=== PATIENT | female | born 1980 | race African-American/Black ===

== ENCOUNTER 2016-12-28 19:17 | Emergency (ER) | payer MEDICAID ==
[~2016-12-28] VITALS: Ht 154.9 cm; Wt 94.3 kg
[2016-12-28 19:36] VITALS: BP 143/90
--- NOTE | 2016-12-28 22:57 | NUR ---
PT TAKEN TO BED 7
--- NOTE | 2016-12-28 22:58 | NUR ---
Dr. Bajwa evaluating patient at bedside.
[2016-12-28] MEDS ORDERED: KETOROLAC 60 MG/2 ML VIAL IM ONE (23:05)
--- NOTE | 2016-12-28 23:05 | NUR ---
PATIENT PRESENTS TO ED WITH TOOTHACHE, SINCE THIS MORNING . SKIN IS PINK/WARM/DRY; AAOX4 WITH EVEN AND STEADY GAIT; PATIENT STATES PAIN OF 10/10 AT THIS TIME; VSS; PATIENT POSITIONED FOR COMFORT; HOB ELEVATED; BEDRAILS UP X2; BED DOWN. ER MD MADE AWARE OF PT STATUS.
[2016-12-28 23:45] VITALS: BP 122/74
--- NOTE | 2016-12-28 23:50 | NUR ---
Patient discharged with v/s stable. Written and verbal after care instructions given and explained. Patient alert, oriented and verbalized understanding of instructions. Ambulatory with steady gait. All questions addressed prior to discharge. ID band removed. Patient advised to follow up with PMD. Rx of NORCO 5MG, MOTRIN 800MG given. Patient educated on indication of medication including possible reaction and side effects. Opportunity to ask questions provided and answered.
== END 2016-12-28 23:50 | disposition home or self-care (01) ==
LOC: MED 19:17
DX: K08.89 Other specified disorders of teeth and supporting structures (principal); Z88.0 Allergy status to penicillin; Z88.6 Allergy status to analgesic agent; Z88.5 Allergy status to narcotic agent; J45.909 Unspecified asthma, uncomplicated
CPT/HCPCS: 96372; 99283; J1885

== ENCOUNTER 2018-01-07 12:50 | Emergency (ER) | payer MEDICAID ==
[~2018-01-07] VITALS: Ht 154.9 cm; Wt 101.7 kg
[2018-01-07 12:54] VITALS: BP 139/103
--- NOTE | 2018-01-07 12:56 | NUR ---
PT AMBULATES TO BED 11
--- NOTE | 2018-01-07 13:10 | NUR ---
PATIENT PRESENTS TO ED WITH SEVERE HEADACHE THAT RADIATES TO NECK AND BACK. PT STATES LIGHT HURTS HER HEAD AND PAIN IS LIKE A STABBING PAIN IN THE FRONT OF HER HEAD THEN THE RIGHT SIDE. REPORTS NAUSEA; SKIN IS PINK/WARM/DRY; AAOX4 WITH EVEN AND STEADY GAIT; LUNGS CLEAR BL; HR EVEN AND REGULAR; PT DENIES ANY FEVER, CP, SOB, OR COUGH AT THIS TIME; PATIENT STATES PAIN OF 10/10 AT THIS TIME; VSS; PATIENT POSITIONED FOR COMFORT; HOB ELEVATED; BEDRAILS UP X1; BED DOWN. ER MD MADE AWARE OF PT STATUS.
[2018-01-07] MEDS ORDERED: KETOROLAC 30 MG/ML VIAL IVP ONE (13:15)
[2018-01-07] MEDS ORDERED: METOCLOPRAMIDE 10 MG/2 ML INJ VIAL IVP ONE (13:15)
[2018-01-07] MEDS ORDERED: NACL 0.9% 1,000 ML IV ONE (13:15)
[2018-01-07 13:50] LABS: APPEARANCE,URINE CLEAR (CLEAR); BILIRUBIN,URINE NEGATIVE (NEGATIVE); BLOOD, URINE NEGATIVE (NEGATIVE); COLOR,URINE YELLOW (YELLOW); LEUKOCYTE ESTERASE ,URINE NEGATIVE (NEGATIVE); NITRITE, URINE NEGATIVE (NEGATIVE); UGLUCOSE NEGATIVE (NEGATIVE)
[2018-01-07 14:35] VITALS: BP 139/103
--- NOTE | 2018-01-07 14:35 | NUR ---
Patient discharged with v/s stable. Written and verbal after care instructions given and explained. Patient alert, oriented and verbalized understanding of instructions. Ambulatory with steady gait. All questions addressed prior to discharge. ID band removed. Patient advised to follow up with PMD. Rx of DICLOFENAC AND CYCLOBENZAPRINE given. Patient educated on indication of medication including possible reaction and side effects. Opportunity to ask questions provided and answered.
== END 2018-01-07 14:35 | disposition home or self-care (01) ==
LOC: MED 12:50
DX: M54.81 Occipital neuralgia (principal); Z88.0 Allergy status to penicillin; Z88.5 Allergy status to narcotic agent; Z88.6 Allergy status to analgesic agent; J45.909 Unspecified asthma, uncomplicated
CPT/HCPCS: 70450; 81003; 96361; 96374; 96375; 99285; J1885; J2765

== ENCOUNTER 2018-02-17 19:55 | Emergency (ER) | payer MEDICAID ==
[~2018-02-17] VITALS: Ht 154.9 cm; Wt 99.1 kg
[2018-02-17 20:00] VITALS: BP 126/100
--- NOTE | 2018-02-17 20:13 | NUR ---
PT TAKEN TO BED 3
--- NOTE | 2018-02-17 22:00 | NUR ---
PT BIB FAMILY C/OREPORTS EXCESSIVE VAGINAL BLEEDING. REPORTS 10/10 PAIN AND CLOTS X 9 DAYS. U/HCG-NEG, PT DENIES N/V/D; SKIN IS INTACT, PINK/WARM/DRY; AAOX4, PERRL, WITH EVEN AND STEADY GAIT; LUNGS CLEAR BL, BREATHING UNLABORED; HR EVEN AND REGULAR, BL PERIPHERAL PULSES PRESENT; BS ACTIVE X4, NO TENDERNESS TO PALPATION. PT DENIES ANY FEVER, CP, SOB, OR COUGH AT THIS TIME; PT STATES 10/10 PAIN AT THIS TIME; VSS; PATIENT POSITIONED FOR COMFORT; HOB ELEVATED; BEDRAILS UP X2; BED DOWN.
--- NOTE | 2018-02-17 22:20 | NUR ---
Pt report given to LOREN[facility]. Transfer of care at this time.
[2018-02-17 22:57] LABS: BASOPHILS # (AUTO) 0.1 K/uL (0.00-0.22); BASOPHILS % (AUTO) 0.8 % (0.0-2.0); EOSINOPHILS # (AUTO) 0.1 K/uL (0-0.4); EOSINOPHILS % (AUTO) 1.9 % (0.0-4.0); HEMATOCRIT 37.4 % (36-48); HEMOGLOBIN 12.7 g/dL (12.0-16.0); LYMPHOCYTES # (AUTO) 3.5 K/uL (2.5-16.5); LYMPHOCYTES % (AUTO) 50.7 % (20.5-51.1); MEAN CORPUSCULAR HEMOGLOBIN 30 pg (27-31); MEAN CORPUSCULAR HGB CONC 34 g/dL (33-37); MEAN CORPUSCULAR VOLUME 89.6 fL (80-94); MONOCYTES # (AUTO) 0.6 K/uL (0.8-1.0); MONOCYTES % (AUTO) 8.5 % (1.7-9.3); NEUTROPHILS # (AUTO) 2.6 K/uL (1.8-7.7); NEUTROPHILS % (AUTO) 38.1 % (42.2-75.2); PLATELET COUNT (AUTO) 267 K/uL (140-450); RED BLOOD CELL COUNT(AUTO) 4.18 MIL/uL (4.20-5.40); RED CELL DISTRIBUTION WIDTH 13.1 % (11.6-13.7); WHITE BLOOD COUNT (AUTO) 6.9 K/uL (4.8-10.8)
--- NOTE | 2018-02-17 23:00 | NUR ---
PT ON STRETCHER IN NO ACUTE DISTRESS. NO IDENTIFIED REQUESTS AT THIS TIME.
[2018-02-17 23:04] LABS: BILIRUBIN,URINE NEGATIVE (NEGATIVE); BLOOD, URINE 3+ (NEGATIVE); COLOR,URINE YELLOW (YELLOW); LEUKOCYTE ESTERASE ,URINE NEGATIVE (NEGATIVE); NITRITE, URINE NEGATIVE (NEGATIVE); UGLUCOSE NEGATIVE (NEGATIVE)
[2018-02-17 23:15] LABS: ANION GAP 12.1 (8-16); CARBON DIOXIDE 25.7 mmol/L (21-32); CREATININE 0.8 mg/dL (0.6-1.3); POTASSIUM 3.8 mmol/L (3.5-5.1)
[2018-02-17 23:21] LABS: ALBUMIN 3.3 g/dL (3.4-5.0); TOTAL BILIRUBIN 0.3 mg/dL (0.0-1.0)
[2018-02-17 23:24] LABS: APPEARANCE,URINE CLOUDY (CLEAR)
[2018-02-17 23:25] LABS: RBC,URINE >100 /HPF (0-5); WBC,URINE 0-5 (RARE) /HPF (0-5)
[2018-02-17 23:26] LABS: CALCIUM OXALATE CRYSTALS,UR 0-10 /HPF (None Seen); URINE AMORPHOUS URATE 1+ /HPF (None Seen)
--- NOTE | 2018-02-18 | NUR ---
PT ON STRETCHER IN NO ACUTE DISTRESS. NO IDENTIFIED REQUESTS AT THIS TIME.
--- NOTE | 2018-02-18 01:00 | NUR ---
PT ON STRETCHER IN NO ACUTE DISTRESS. NO IDENTIFIED REQUESTS AT THIS TIME.
[2018-02-18] MEDS ORDERED: KETOROLAC 30 MG/ML VIAL IM ONE (02:10)
--- NOTE | 2018-02-18 02:39 | NUR ---
AWAITING D/C PAPERWORK FROM [facility].
[2018-02-18 03:19] VITALS: BP 134/87
== END 2018-02-18 03:25 | disposition home or self-care (01) ==
LOC: MED 19:55
DX: D25.9 Leiomyoma of uterus, unspecified (principal); J45.909 Unspecified asthma, uncomplicated; Z88.0 Allergy status to penicillin; Z88.8 Allergy status to other drugs, medicaments and biological substances
CPT/HCPCS: 36415; 80053; 81001; 81025; 85025; 96372; 99284; J1885